=== PATIENT | male | born 1950 | race Caucasian/White ===

== ENCOUNTER → 2017-06-22 | Outpatient (CLI) | payer BC ==
[~2017-06-22] MED LIST: ASPI81TA85 PO; ATEN50TA2 PO; CHOL4POW2 PO; ENAL5TAB PO; FAMO20TA PO; LATA5OPD OU; OMEP20CA3 PO; SIMV40TA2 PO; TOUJ1.2I SQ
[2017-06-22 16:32] LABS: FREE T4 0.94 NG/DL (0.76-1.46)
== END ==
LOC: M LAB 15:32
PROVIDERS: ATTEND Internal Medicine Gastroenterology
DX: R19.4 Change in bowel habit (principal)

== ENCOUNTER → 2017-06-27 | Outpatient (REF) | payer BC | LOC: M LAB REF 15:51 | PROVIDERS: ATTEND Internal Medicine Gastroenterology | DX: R19.4 Change in bowel habit (principal) ==

== ENCOUNTER → 2021-04-22 | Outpatient (CLI) | payer BC ==
[~2021-04-22] MED LIST changes: -ASPI81TA85 PO; +ASPI81TA86 PO; +BAYE81TA7 PO; +BRIM0.2S13 OU; +CHOL25TA2 PO; +DORZ2SOL20 OP; +ENAL1TAB46 PO; +ENAL5TA PO; -ENAL5TAB PO; +LATA0.0013 OU; +LATA0.0015 OU; -LATA5OPD OU; +OMEP-221 PO; +OMEP1CAP73 PO; -OMEP20CA3 PO; -SIMV40TA2 PO; +SIMV40TA20 PO; +VITA100T51 PO
== END ==
LOC: M LABSMTC 10:39
PROVIDERS: ATTEND Anesthesiology
DX: Z01.818 Encounter for other preprocedural examination (principal); Z11.52 Encounter for screening for COVID-19

== ENCOUNTER 2021-04-27 08:15 | Day surgery (SDC) | payer MEDICARE ==
[~2021-04-27] VITALS: Ht 182.9 cm; Wt 114.2 kg
[~2021-04-27 08:15] MED LIST changes: +NS 1,000 ML IV ONE
[2021-04-27] MEDS ORDERED: LIDOCAINE 2% 100MG/5ML SDV (FOR ANES.) As Ordered ONE (08:40)
[2021-04-27] MEDS ORDERED: propofoL 200 MG/20 ML VIAL As Ordered ONE (08:40)
[2021-04-27] MEDS ORDERED: fentaNYL 100 MCG/2 ML INJECTION (J3010) As Ordered ONE (08:41)
--- NOTE | 2021-04-27 09:10 | ROOR ---
Patient Name: Emir Ceja Procedure Date: 04/27/2021 8:56 AM Date of : 1950 Age: 70 Room: [facility] Gender: Male Note Status: Finalized Procedure: Upper GI endoscopy Indications: Suspected esophageal reflux, Chest pain (non cardiac) Providers: Darien Bowman MD Referring MD: KEON DIMAS DO Requesting Provider: Medicines: Monitored Anesthesia Care Complications: No immediate complications. Procedure: Pre-Anesthesia Assessment: - The heart rate, respiratory rate, oxygen saturations, blood pressure, adequacy of pulmonary ventilation, and response to care were monitored throughout the procedure. The Endoscope was introduced through the mouth, and advanced to the second part of duodenum. The upper GI endoscopy was accomplished without difficulty. The patient tolerated the procedure well. Findings: The Z-line was variable and was found 38 cm from the incisors. Biopsies were taken with a cold forceps for histology. The examined esophagus was otherwise normal. The entire examined stomach was normal. (large volume) The examined duodenum was normal. Impression: - Z-line variable, 38 cm from the incisors. Biopsied. - Normal esophagus. - Normal stomach. - Normal examined duodenum. Recommendation: - Telephone endoscopist for pathology results in 2 weeks. - Use Prilosec (omeprazole) 40 mg PO BID. (for chest pain related to GERD) Procedure Code(s): --- Professional --- 74409, Esophagogastroduodenoscopy, flexible, transoral; with biopsy, single or multiple Diagnosis Code(s): --- Professional --- R07.89, Other chest pain K22.8, Other specified diseases of esophagus CPT copyright 2019 [employer]. All rights reserved. The codes documented in this report are preliminary and upon product development chemist review may be revised to meet current compliance requirements. Darien Bowman MD Darien Bowman MD 04/27/2021 9:10:11 AM Electronically signed by Darien Bowman MD Number of Addenda: 0 Note Initiated On: 04/27/2021 8:56 AM Estimated Blood Loss: Estimated blood loss: none.
--- NOTE | 2021-04-27 09:30 | ROOR ---
Patient Name: Emir Ceja Procedure Date: 04/27/2021 8:57 AM Date of : 1950 Age: 70 Room: [facility] Gender: Male Note Status: Finalized Procedure: Colonoscopy Indications: High risk colon cancer surveillance: Personal history of colonic polyps, Family history of colon cancer in a first-degree relative age 62 years Providers: Darien Bowman MD Referring MD: KEON DIMAS DO Requesting Provider: Medicines: Monitored Anesthesia Care Complications: No immediate complications. Procedure: Pre-Anesthesia Assessment: - The heart rate, respiratory rate, oxygen saturations, blood pressure, adequacy of pulmonary ventilation, and response to care were monitored throughout the procedure. The Colonoscope was introduced through the anus and advanced to the cecum, identified by appendiceal orifice and ileocecal valve. The colonoscopy was performed without difficulty. The patient tolerated the procedure well. The quality of the bowel preparation was good. Findings: The perianal and digital rectal examinations were normal. A 6 mm polyp was found in the cecum. The polyp was semi-pedunculated. The polyp was removed with a cold snare. Resection and retrieval were complete. Multiple small and large-mouthed diverticula were found in the sigmoid colon. Small Internal Hemorrhoids. The exam was otherwise without abnormality on direct and retroflexion views. Impression: - One 6 mm polyp in the cecum, removed with a cold snare. Resected and retrieved. - Diverticulosis in the sigmoid colon. - Small Internal Hemorrhoids. - The examination was otherwise normal on direct and retroflexion views. Recommendation: - Repeat colonoscopy in 5 years for surveillance. Procedure Code(s): --- Professional --- 31465, Colonoscopy, flexible; with removal of tumor(s), polyp(s), or other lesion(s) by snare technique Diagnosis Code(s): --- Professional --- K57.30, Diverticulosis of large intestine without perforation or abscess without bleeding Z80.0, Family history of malignant neoplasm of digestive organs K63.5, Polyp of colon Z86.010, Personal history of colonic polyps CPT copyright 2019 [place] [employer]. All rights reserved. The codes documented in this report are preliminary and upon clothing worker review may be revised to meet current compliance requirements. Darien Bowman MD Darien Bowman MD 04/27/2021 9:30:17 AM Electronically signed by Darien Bowman MD Number of Addenda: 0 Note Initiated On: 04/27/2021 8:57 AM Estimated Blood Loss: Estimated blood loss: none.
[2021-04-27 09:57] VITALS: BP 133/67
== END 2021-04-27 10:20 | disposition home or self-care (01) ==
LOC: M OPP 08:15
PROVIDERS: ATTEND Internal Medicine Gastroenterology
DX: Z12.11 Encounter for screening for malignant neoplasm of colon (principal); Z86.010 Personal history of colon polyps; Z80.0 Family history of malignant neoplasm of digestive organs; K63.5 Polyp of colon; K57.30 Diverticulosis of large intestine without perforation or abscess without bleeding; K64.8 Other hemorrhoids; K22.8 Other specified diseases of esophagus; R12 Heartburn; R07.89 Other chest pain; Z79.4 Long term (current) use of insulin; Z79.82 Long term (current) use of aspirin; Z79.899 Other long term (current) drug therapy
CPT/HCPCS: 43239; 45385; 88305; J3010

== ENCOUNTER → 2024-08-07 | Outpatient (CLI) | payer MEDICARE, OTHER ==
[~2024-08-07] MED LIST changes: -CHOL4POW2 PO; +CHOL4POW36 PO; +E-Z-GAS II EFFERVESCENT PACKET (SODIUM BICARB./CITRIC ACID/SIMETHICONE) As Ordered ONE; +E-Z-HD 98% w/w 340GM SUSP BTL As Ordered ONE; +E-Z-PAQUE 96% w/w SUSP 176GM BTL As Ordered ONE; +ENAL1TAB48 PO; -ENAL5TA PO; -NS 1,000 ML IV ONE; -OMEP-221 PO; +OMEP40CA5 PO
== END ==
LOC: M RAD 07:29
PROVIDERS: ATTEND Family Medicine
DX: K21.9 Gastro-esophageal reflux disease without esophagitis (principal)

== ENCOUNTER → 2025-08-09 | Outpatient (CLI) | payer MEDICARE, OTHER ==
[~2025-08-09] MED LIST changes: -E-Z-GAS II EFFERVESCENT PACKET (SODIUM BICARB./CITRIC ACID/SIMETHICONE) As Ordered ONE; -E-Z-HD 98% w/w 340GM SUSP BTL As Ordered ONE; -E-Z-PAQUE 96% w/w SUSP 176GM BTL As Ordered ONE
== END ==
LOC: M PLAIMG 10:42
PROVIDERS: ATTEND Physician Assistant
DX: I77.810 Thoracic aortic ectasia (principal); I08.0 Rheumatic disorders of both mitral and aortic valves